=== PATIENT | female | born 2000 | race Caucasian/White ===

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

== ENCOUNTER 2020-02-14 20:37 | Emergency (ER) | payer OTHER, SELFPAY ==
[2020-02-14] VITALS (7 sets, daily range): BP systolic 119–148; BP diastolic 63–82; PULSE 59–79; RESP 16–18; TEMP 36.8; O2SAT 100
--- NOTE | 2020-02-14 21:02 | ED.ALLEREA ---
HPI - Allergic Reaction General Chief complaint: Allergic Reaction Stated complaint: thinks allergic reaction, ate fish Time Seen by Provider: 02/14/20 20:53 Source: patient Mode of arrival: Ambulatory History of Present Illness HPI narrative: Otherwise healthy 19-year-old young woman presents approximately 30 minutes after eating fish and notes increasing swelling around her right eye tingling on her tongue her lips and a sense of swelling to the left side of her tongue. She has never had an allergic reaction before. Related Data Home Medications Medication Instructions Recorded Confirmed Acetaminophen Inf Drop - 160 mg PO #0 06/03/06 03/16/18 (Tylenol) desogestrel 0.15 mg-ethinyl 1 tab PO DAILY 11/21/17 03/16/18 estradiol 0.03 mg tablet Allergies Allergy/AdvReac Type Severity Reaction Status Date / Time No Known Drug Allergies Allergy Verified 03/16/18 09:31 Review of Systems Review of Systems Narrative: Pertinent positive and negative findings as per HPI Remainder of review of systems is otherwise unremarkable for Constitutional: Fevers, chills, weakness ENT: No sore throat, neck pain, ear pain CV: Chest pain, palpitations, dyspnea on exertion Respiratory: Cough, wheeze, dyspnea GI: Nausea, vomiting, diarrhea, change in bowel habits, black or bloody stools : Dysuria, hematuria, flank pain Patient History Medical History No significant past medical history Social History Smoking Status: Never smoker Smoking Status: Never smoker alcohol intake frequency: 0-2 drinks per day Substance Use Type: does not use Exam Narrative Exam Narrative: General: Healthy appearing, in no acute distress. Able to give a complete and coherent history. Well-nourished well-developed HEENT: Moist mucous membranes, normal sclera with reactive pupils, mild periorbital edema around the right eye. Slight swelling to the left anterior tongue. Posterior pharynx is unremarkable. Patient describes no difficulty with swallow. No obvious lip swelling. Neck: supple Respiratory: Lungs are clear to auscultation, no wheezing no rales no rhonchi. Full and symmetrical air movement Cardiac: Regular rate and rhythm no murmurs no bruits Abdomen: Soft nontender good bowel tones, no flank pain Skin: Warm and dry, no rashes Neurologic: Grossly neurologically intact with no obvious asymmetries or abnormalities Extremities: No trauma, well perfused Psych: Cooperative, appropriate insight and affect Initial Vital Signs Initial Vital Signs: Vital Signs Temperature 98.2 F 02/14/20 20:43 Pulse Rate 79 02/14/20 20:43 Respiratory Rate 18 02/14/20 20:43 Blood Pressure 148/82 H 02/14/20 20:43 Pulse Oximetry 100 02/14/20 20:43 Course Orders Ordered: Discontinued Medications Diphenhydramine HCl (Diphenhydramine 50 Mg/Ml Vial) 25 mg IV NOW ONE Stop: 02/14/20 21:02 Last Admin: 02/14/20 21:05 Dose: 25 mg Documented by: DOMINIQUE Famotidine (Pepcid) 20 mg in 50 mls @ 200 mls/hr IV NOW ONE Stop: 02/14/20 21:15 Last Infusion: 02/14/20 21:19 Dose: 0 mls/hr Documented by: Admin: 02/14/20 21:05 Dose: 200 mls/hr Documented by: DOMINIQUE Methylprednisolone (Methylprednisolone 125 Mg/2 Ml Vial) 125 mg IV NOW ONE Stop: 02/14/20 21:02 Last Admin: 02/14/20 21:05 Dose: 125 mg Documented by: DOMINIQUE Vital Signs Vital signs: Vital Signs - 8 hr 02/14/20 20:43 02/14/20 21:13 02/14/20 21:14 Temperature 98.2 F Pulse Rate 79 59 L 62 Respiratory Rate 18 16 Blood Pressure 148/82 H 119/79 Pulse Oximetry 100 100 100 02/14/20 21:26 Temperature Pulse Rate 76 Respiratory Rate 16 Blood Pressure 124/65 Pulse Oximetry 100 MDM - Allergic Reaction Medical Records Attestation: I reviewed the patient's medical records. MDM Narrative Medical decision making narrative: Allergic reaction with mild swelling around the eye and swelling of the tongue. Responded nicely to steroid, H2 lana and Benadryl. No acute respiratory issues. Symptoms have almost entirely resolved and she is safe for home discharge at this time Discharge Plan Departure Patient Disposition: Home Clinical Impression: Allergic reaction Qualifiers: Encounter type: initial encounter Qualified Code(s): T78.40XA - Allergy, unspecified, initial encounter Instructions: DI for Anaphylaxis Activity Restrictions/Additional Instructions: Thank you for coming in today. It was very appropriate to do so. I do not think that you had an anaphylactic reaction but you certainly reacted to something this evening. In the emergency room you were given IV steroid as well as Benadryl. Your symptoms improved nicely. Frequently, we never quite figure out what you are actually allergic to. You will need to pay close attention and see if you have any recurrent symptoms. If you do, I would recommend taking 2 [id number] Benadryl immediately. If you notice any symptoms involving your mouth, tongue, throat or lungs you need to come to the emergency room immediately. If you have symptoms recurring tonight, please return to the ER It was nice to see you again! Prescriptions: No Action desogestrel-ethinyl estradiol [Enskyce] 0.15-0.03 mg tablet 1 tab PO DAILY RF: 0 Acetaminophen Inf Drop - (Tylenol) 160 mg PO Qty: 0 RF: 0 Referrals: Yola Martinez MD [Primary Care Provider] -
[2020-02-14] MEDS: FAMOTIDINE 20 MG/50 ML PIGGYBACK 200 MG IV (21:05)
[2020-02-14] MEDS: methylPREDNISolone 125 MG/2 ML VIAL IV (21:05)
[2020-02-14] MEDS: diphenhydrAMINE 50 MG/ML VIAL 25 MG IV (21:05)
--- NOTE | 2020-02-14 21:27 | PC.NURSE ---
Eye swelling resolving.
== END 2020-02-14 22:04 | disposition home or self-care (01) ==
PROVIDERS: Emergency Provider Emergency Medicine; Family Provider Family Medicine; PCP Family Medicine
DX: T78.40XA Allergy, unspecified, initial encounter (principal); R22.0 Localized swelling, mass and lump, head
CPT/HCPCS: 36415; 96374; 96375; 99283; 99284; J1200; J2930